=== PATIENT | male | born 1970 | race Two or more races ===

== ENCOUNTER 2019-05-26 06:18 | Emergency (ER) | payer OTHER ==
[~2019-05-26] VITALS: Ht 188 cm; Wt 125.6 kg
--- NOTE | 2019-05-26 06:21 | NUR ---
PT BIBRA C/C ABD PAIN X3 HRS AGO. 06/25 NAVEED. -SOB NOTED. VSS. AOX4 AMBULATORY WITH ASSISTANCE. PT ON MONITOR IN BED 9. WILL CONTINUE TO MONITOR.
[2019-05-26] MEDS ORDERED: LIDOCAINE VISCOUS 2% UD 15 ML UDC MM ONE (06:30)
[2019-05-26] MEDS ORDERED: MAG HYDROX/AL HYDROX/SIMETH 30 ML UDC PO ONE (06:30)
[2019-05-26] MEDS ORDERED: IV NS 0.9% 1,000 ML BAG IV ONE ×2 (06:30→10:00)
[2019-05-26] MEDS ORDERED: ONDANSETRON HCL/PF 4 MG/2 ML VIAL IVP ONE (06:30)
[2019-05-26] MEDS ORDERED: FAMOTIDINE/PF INJ 20 MG/2 ML VIAL IV ONE ×2 (06:30→06:31)
--- NOTE | 2019-05-26 06:30 | NUR ---
BLOOD DRAWN AND GIVEN TO LAB
[2019-05-26] MEDS ORDERED: LIDOCAINE VISCOUS 2% UD 15 ML UDC ONE (06:31)
[2019-05-26] MEDS ORDERED: ONDANSETRON HCL/PF 4 MG/2 ML VIAL ONE ×2 (06:31→09:03)
[2019-05-26] MEDS ORDERED: MAG HYDROX/AL HYDROX/SIMETH 30 ML UDC ONE (06:31)
--- NOTE | 2019-05-26 06:34 | NUR ---
TECH AT BEDSIDE FOR EKG
[2019-05-26] MEDS ORDERED: HYDROMORPHONE 1 MG/1 ML DISP.SYRIN ONE ×3 (06:44→08:27)
[2019-05-26 06:45] LABS: BASOPHILS # (AUTO) 0.1 /CMM (0.0-0.2); BASOPHILS % (AUTO) 0.8 % (0.0-2.0); EOSINOPHILS % (AUTO) 1.8 % (0.0-6.0); HEMATOCRIT 42 % (39-51); HEMOGLOBIN 14.6 g/dL (13.5-17.5); LYMPHOCYTES # (AUTO) 3.1 /CMM (0.8-4.8); LYMPHOCYTES % (AUTO) 29.5 % (20.0-44.0); MEAN CORPUSCULAR HGB CONC 34 g/dl (31.0-36.0); MEAN CORPUSCULAR VOLUME 92 fL (80-96); MONOCYTES # (AUTO) 0.7 /CMM (0.1-1.30); MONOCYTES % (AUTO) 6.3 % (2.0-12.0); NEUTROPHILS # (AUTO) 6.4 /CMM (1.8-8.9); NEUTROPHILS % (AUTO) 61.6 % (43.0-81.0); PLATELET COUNT (AUTO) 288 /CMM (150-450); RED BLOOD CELL COUNT(AUTO) 4.62 MIL/uL (4.5-6.0); WHITE BLOOD COUNT (AUTO) 10.4 K/uL (4.3-11.0)
[2019-05-26 06:51] LABS: CREATININE 1.1 mg/dL (0.6-1.3); POTASSIUM 3.9 mmol/L (3.5-5.1)
[2019-05-26 06:58] LABS: ALBUMIN 3.7 g/dL (3.4-5.0); BILIRUBIN,DIRECT 0.1 mg/dL (0.0-0.2); BILIRUBIN,TOTAL 0.3 mg/dL (0.2-1.0); TOTAL PROTEIN, SERUM 7.9 g/dL (6.4-8.2)
[2019-05-26] MEDS ORDERED: HYDROMORPHONE 1 MG/1 ML DISP.SYRIN IV ONE ×3 (07:00→08:30)
[2019-05-26] MEDS ORDERED: MORPHINE SULFATE INJ 2 MG/ML DISP.SYRIN IV ONE (07:00)
[2019-05-26] MEDS ORDERED: CT SWABBABLE VALVE TRANS SET 1 EA INFUS.SET MC ONE (07:20)
[2019-05-26] MEDS ORDERED: IV NS 0.9% 250 ML IV ONE (07:20)
[2019-05-26] MEDS ORDERED: IOHEXOL-300 100 ML VIAL IV ONE (07:20)
--- NOTE | 2019-05-26 07:20 | NUR ---
RECEIVED REPORT FROM CORBIN BARLOW FOR NHAN, PT IS AAOX4, NOT IN RESPRAITORY DISTRESS, KEPT RESTED AND COMFORTABLE, WILL CONTINUE TO MONITOR.
--- NOTE | 2019-05-26 07:35 | NUR ---
PT IS BACK FROM THE CT SCAN.
--- NOTE | 2019-05-26 08:29 | NUR ---
KASSIE TOBAR AT BEDSIDE FOR REPEAT EKG.
[2019-05-26] MEDS ORDERED: NITROGLYCERIN 0.4 MG/TAB BOTTLE ONE (09:07)
[2019-05-26] MEDS ORDERED: NITROGLYCERIN 0.4 MG/TAB BOTTLE SL ONE (09:30)
[2019-05-26] MEDS ORDERED: ONDANSETRON HCL/PF - ER 4 MG/2 ML VIAL IV ONE (09:30)
--- NOTE | 2019-05-26 09:30 | NUR ---
ROCK WOOL INSULATOR AT BEDSIDE FOR XRAY.
[2019-05-26] MEDS ORDERED: METOCLOPRAMIDE HCL 10 MG/2 ML VIAL ONE (09:54)
[2019-05-26] MEDS ORDERED: METOCLOPRAMIDE HCL 10 MG/2 ML VIAL IV ONE (10:00)
[2019-05-26] MEDS ORDERED: NITROGLYCERIN PACKET 1 GM PACKET TOP ONE (10:00)
[2019-05-26] MEDS ORDERED: ASPIRIN EC 325 MG TABLET.DR PO ONE ×2 (10:00→10:04)
[2019-05-26] MEDS ORDERED: NITROGLYCERIN PACKET 1 GM PACKET ONE (10:03)
--- NOTE | 2019-05-26 10:05 | NUR ---
Emergency Prospective Review Program ([facility]) CALLED [phone] VIOLA CARBAJAL NUMBER IS [phone]
[2019-05-26] MEDS: PROCHLORPERAZINE EDISYLATE 10 MG/2 ML VIAL IVP ONE ×2 (10:15→10:18)
[2019-05-26] MEDS ORDERED: PROCHLORPERAZINE EDISYLATE 10 MG/2 ML VIAL ONE (10:17)
[2019-05-26] MEDS ORDERED: LORAZEPAM INJ 2 MG/ML VIAL ONE (10:24)
[2019-05-26] MEDS ORDERED: LORAZEPAM INJ 2 MG/ML VIAL IV ONE (10:30)
[2019-05-26 11:27] VITALS: BP 128/71
--- NOTE | 2019-05-26 11:27 | NUR ---
IV removed. Catheter intact and site benign. Pressure and 4x4 applied to site. No bleeding noted. Patient Patient does not wish to proceed with medical care recommended by Dr. ORTEGA. Patient given information related to possible complications, up to and including , which could occur as a result of leaving the hospital at this time. Patient verbalizes understanding of risks involved due to leaving against medical advice. Patient has signed AMA form.
== END 2019-05-26 11:30 | disposition left against medical advice (07) ==
LOC: ER 06:20
DX: R10.13 Epigastric pain (principal); R11.2 Nausea with vomiting, unspecified; R07.89 Other chest pain; Z88.6 Allergy status to analgesic agent
CPT/HCPCS: 36415; 71045; 74177; 80048; 80076; 83690; 84484 ×2; 85025; 85730; 93005 ×3; 96361; 96374; 96375; 96376; 99284; A4216; J0780; J1170 ×3; J2060; J2405 ×3; J2765; J3490; J7030 ×2; J7050; Q9967